=== PATIENT | female | born 1975 | race African-American/Black ===

== ENCOUNTER 2018-11-17 13:13 | Emergency (ER) | payer OTHER ==
[2018-11-17] MEDS: DEXAMETHASONE 10 MG/ML 1 ML INJ IM (13:41)
[2018-11-17] MEDS: HYDROCODONE/APAP (5/325) TAB PO (13:41)
== END 2018-11-17 15:00 | disposition home or self-care (01) ==
LOC: FTE 13:13
DX: S62.653A Nondisplaced fracture of middle phalanx of left middle finger, initial encounter for closed fracture (principal); M54.32 Sciatica, left side; W01.0XXA Fall on same level from slipping, tripping and stumbling without subsequent striking against object, initial encounter; Y92.9 Unspecified place or not applicable
CPT/HCPCS: 29130; 73140; 96372; 99284-25